=== PATIENT | female | born 2000 | race Caucasian/White ===

== ENCOUNTER 2022-05-01 19:21 | Emergency (ER) | payer OTHER ==
[~2022-05-01 19:21] MED LIST: IBUPROFEN600 MG PO; MUCINEX DM ER1 EACH PO
== END 2022-05-01 22:33 | disposition home or self-care (01) ==
LOC: ER1 19:21
DX: S91.311A Laceration without foreign body, right foot, initial encounter (principal); F17.210 Nicotine dependence, cigarettes, uncomplicated; Z88.0 Allergy status to penicillin; Z88.8 Allergy status to other drugs, medicaments and biological substances; W25.XXXA Contact with sharp glass, initial encounter
CPT/HCPCS: 12002; 73630; 99283